=== PATIENT | female | born 1960 | race Caucasian/White ===

== ENCOUNTER 2020-11-17 11:14 | Emergency (ER) | payer OTHER ==
[2020-11-17] MEDS ORDERED: NAPROXEN500 MG PO (13:49)
== END 2020-11-17 13:58 | disposition home or self-care (01) ==
LOC: FER 11:14
DX: S20.212A Contusion of left front wall of thorax, initial encounter (principal); S40.012A Contusion of left shoulder, initial encounter; Z88.0 Allergy status to penicillin; W10.9XXA Fall (on) (from) unspecified stairs and steps, initial encounter; Y92.89 Other specified places as the place of occurrence of the external cause; Y99.0 Civilian activity done for income or pay
CPT/HCPCS: 71101; 73030

== ENCOUNTER 2021-05-17 09:22 | Emergency (ER) | payer OTHER ==
[~2021-05-17 09:22] MED LIST: NAPROXEN500 MG PO
[2021-05-18] MEDS ORDERED: ZOLOFT50 MG PO (14:59)
[2021-05-20] MEDS ORDERED: DAILY VALUE1 EACH PO (06:21)
== END 2021-05-17 12:15 | disposition home or self-care (01) ==
LOC: FER 09:22
DX: S82.032A Displaced transverse fracture of left patella, initial encounter for closed fracture (principal); W22.8XXA Striking against or struck by other objects, initial encounter; Y92.009 Unspecified place in unspecified non-institutional (private) residence as the place of occurrence of the external cause
CPT/HCPCS: 73560

== ENCOUNTER → 2021-05-20 | Day surgery (SDC) | payer OTHER ==
[~2021-05-20] VITALS: Ht 170.2 cm; Wt 59.0 kg
[~2021-05-20] MED LIST changes: +DAILY VALUE1 EACH PO; +ZOLOFT50 MG PO
[2021-05-20 06:53] LABS: HCT 35.4 % (37.0-47.0); HGB 11.6 g/dl (12.5-16.0); MCH 31.9 pg (25.0-31.0); MCHC 32.8 g/dL (32.0-36.0); MCV 97.3 fL (78.0-100.0); MPV 9.6 fL (6.0-9.5); RBC 3.64 M/uL (4.20-5.40); RDW 13.2 % (11.5-14.0); WBC 4.4 K/uL (4.0-10.5)
== END | disposition home or self-care (01) ==
LOC: FAS 06:02
PROVIDERS: Legal Medicine
DX: S82.032A Displaced transverse fracture of left patella, initial encounter for closed fracture (principal); M25.062 Hemarthrosis, left knee; G89.18 Other acute postprocedural pain; F41.9 Anxiety disorder, unspecified; Z88.0 Allergy status to penicillin; Z79.899 Other long term (current) drug therapy; W01.0XXA Fall on same level from slipping, tripping and stumbling without subsequent striking against object, initial encounter
CPT/HCPCS: 36415; 73560; 76000; C1713; C1776; J1100; J1170; J1885; J2250; J2405; J2704; J2795; J3010; J7120

== ENCOUNTER 2021-10-28 08:52 | Emergency (ER) | payer OTHER ==
[2021-10-28 10:52] LABS: BASOPHIL 0.5 % (0-2); HCT 43.2 % (37.0-47.0); HGB 14.2 g/dl (12.5-16.0); LYMPHOCYTE 28.8 % (15-48); MCH 31.7 pg (25.0-31.0); MCHC 32.9 g/dL (32.0-36.0); MCV 96.4 fL (78.0-100.0); MONOCYTE 10.1 % (0-12); MPV 9.7 fL (6.0-9.5); NEUTROPHIL 53.4 % (41-80); NRBC 0; PLT 193 K/uL (150-400); RBC 4.48 M/uL (4.20-5.40); RDW 13.3 % (11.5-14.0); WBC 4.4 K/uL (4.0-10.5)
[2021-10-28 11:07] LABS: ALBUMIN 4.3 g/dL (3.4-5.0); BILIRUBIN - TOTAL 0.7 mg/dL (0.2-1.0); CREATININE 0.46 mg/dL (0.51-0.95); GLOBULIN (CALCULATION) 3.1 g/dL; POTASSIUM 3.8 mmol/L (3.5-5.1); TOTAL PROTEIN 7.4 g/dL (6.4-8.2)
[2021-10-28] MEDS ORDERED: NEURONTIN100 MG PO (11:26)
== END 2021-10-28 12:31 | disposition home or self-care (01) ==
LOC: FER 08:52
PROVIDERS: Emergency Medicine
DX: G50.0 Trigeminal neuralgia (principal); Z88.0 Allergy status to penicillin
CPT/HCPCS: 36415; 80053; 84484; 85025; 93005